=== PATIENT | male | born 2000 | race Caucasian/White ===

== ENCOUNTER 2021-02-18 19:04 | Emergency (ER) | payer SELFPAY ==
[~2021-02-18] VITALS: Ht 170.2 cm; Wt 103.9 kg
[2021-02-18] MEDS ORDERED: IBUP-2028 MT (19:51)
[2021-02-18 19:55] VITALS: BP 138/82
== END 2021-02-18 19:59 | disposition home or self-care (01) ==
LOC: ER 19:04
DX: M25.512 Pain in left shoulder (principal); M54.89 Other dorsalgia; R03.0 Elevated blood-pressure reading, without diagnosis of hypertension
CPT/HCPCS: 99282